=== PATIENT | female | born 1960 | race African-American/Black ===

== ENCOUNTER → 2016-10-03 | Day surgery (SDC) | payer OTHER ==
[~2016-10-03] MED LIST: ATORVASTATIN CA10 MG PO; CALCIUM 500 +1 EAC2 PO; CHLORTHALIDONE50 M1 PO; FLAX SEED OIL1000 M1 PO; HYDRALAZINE HC100 MG PO; METFORMIN HCL500 M1 PO; METOPROLOL PO; MULTIVITAMINS1 EAC3 PO; NAPROSYN-EC500 M1 PO; SPIRONOLACTONE50 MG PO; VITAMIN E400 UNI4 PO
--- NOTE | ~2016-10-03 | OR ---
Unit #: [id number] #: [id number] Patient: MATTHIAS RICCI [id number] [address] [id number] O MR#: [id number] NAME: MATTHIAS RICCI ROOM: Date of Procedure: 10/03/2016 Admission Date: 10/03/2016 Surgeon: Pepe Leahy M.D. : 1960 Attending Physician: Pepe Leahy M.D. Primary Care Physician: Shantanu Chang M.D. OPERATIVE REPORT PROCEDURE PERFORMED Colonoscopy to cecum with snare polypectomy. INDICATIONS FOR PROCEDURE A 56-year-old with average risk for colorectal cancer. MEDICATIONS Monitored anesthesia. POSTOPERATIVE FINDINGS 1. Polyps at transverse colon x1, 5 mm, snared. 2. Polyps in rectum x1, 5 mm, snared, and sent for histopathology. 3. Rest of colon exam to cecum was normal. 4. Internal hemorrhoids. PLAN 1. Followup on the pathology report. 2. Repeat colonoscopy in 5 years. DESCRIPTION OF PROCEDURE The patient was explained of the procedure, risks, and benefits along with the risks and benefits of anesthesia. She was brought to the endoscopy room. Propofol anesthesia was given. Rectal exam was done, which was normal. Colonoscope was lubricated, passed up the rectum, advanced under direct vision all the way to the cecum. Cecum was identified by ileocecal valve and appendiceal orifice. Two polyps were seen as described. I retroflexed in the rectum, small hemorrhoids seen. Gently, the scope was pulled out. She tolerated it well. Dictated by... Brian Donovan/jay jay TD: 10/18/2016 09:05 JOB #: [id number] Unit #: [id number] #: [id number] Patient: MATTHIAS RICCI OPERATIVE REPORT Page 1 of 1 X Pepe Leahy MD PROCEDURE OPERATIVE NOTE
== END | disposition home or self-care (01) ==
LOC: COPS 08:32
DX: Z12.11 Encounter for screening for malignant neoplasm of colon (principal); K63.5 Polyp of colon; D12.8 Benign neoplasm of rectum; K64.8 Other hemorrhoids; K21.9 Gastro-esophageal reflux disease without esophagitis; E11.9 Type 2 diabetes mellitus without complications; I10 Essential (primary) hypertension; Z79.899 Other long term (current) drug therapy; Z79.84 Long term (current) use of oral hypoglycemic drugs; Z88.8 Allergy status to other drugs, medicaments and biological substances; Z90.711 Acquired absence of uterus with remaining cervical stump
CPT/HCPCS: 82947; 88305